=== PATIENT | male | born 1995 | race Caucasian/White ===

== ENCOUNTER 2024-06-23 11:37 | Inpatient (IN) | payer OTHER ==
[2024-06-23 11:59] VITALS: BMI 23.0
[2024-06-23] MEDS ORDERED: BENZOCAINE/MENTHOL (CHLORASEPTIC ) LOZENGE MM PRN (13:09)
[2024-06-23] MEDS ORDERED: NALOXONE HCL 0.4 MG/ML VIAL IM PRN (13:09)
[2024-06-23] MEDS ORDERED: DICYCLOMINE HCL 10 MG CAPSULE PO PRN (13:09)
[2024-06-23] MEDS ORDERED: MAGNESIUM HYDROX 2400MG/30ML ORAL SUSPENSION 30 ML CUP PO PRN (13:09)
[2024-06-23] MEDS ORDERED: MAG HYDROX/AL HYDROX/SIMETH 30 ML UNIT-DOSE CUP PO PRN (13:09)
[2024-06-23] MEDS ORDERED: POLYETHYLENE GLYCOL (HEALTHYLAX) 3350 17 GM PACKET PO PRN (13:09)
[2024-06-23] MEDS ORDERED: LOPERAMIDE HCL 2 MG CAPSULE PO PRN (13:09)
[2024-06-23] MEDS ORDERED: ACETAMINOPHEN 325 MG TABLET (FP) PO PRN (13:09)
[2024-06-23] MEDS ORDERED: ONDANSETRON *ODT* 4 MG TABLET SL PRN (13:09)
[2024-06-23] MEDS ORDERED: BENZONATATE 200 MG CAPSULE PO PRN (13:09)
[2024-06-23] MEDS ORDERED: guaiFENesin 600 MG TABLET.ER (FP) PO PRN (13:09)
[2024-06-23] MEDS ORDERED: BISMUTH SUBSALICYLATE 524 MG/30 ML PO PRN (13:09)
[2024-06-23] MEDS ORDERED: NALOXONE (NARCAN) HCL 4 MG/0.1 ML SPRAY NS PRN (13:09)
[2024-06-23] MEDS ORDERED: methaDONE HCL 10 MG TABLET PO SCH (14:00)
[2024-06-23] MEDS: methaDONE HCL 40 MG DISPERSABLE TABLET PO SCH (14:03)
[2024-06-23] MEDS: NICOTINE 14 MG/24 HOURS TOPICAL PATCH TD SCH (15:12)
[2024-06-23] MEDS: diazePAM 5 MG TABLET PO PRN (15:34)
[2024-06-23] MEDS: diazePAM 5 MG TABLET PO SCH (17:34)
[2024-06-23] MEDS ORDERED: NICOTINE POLACRILEX 4 MG GUM BUC PRN (17:35)
[2024-06-23] MEDS ORDERED: PATIENT'S OWN MEDICATION (NON-FORMULARY) (Gabapentin [Gabapentin] 600 MG Tablet) PO SCH (22:00)
[2024-06-23] MEDS: MELATONIN 5 MG TABLETS PO SCH (22:13)
[2024-06-23] MEDS: THIAMINE 100 MG TABLET PO SCH (22:14)
[2024-06-23] MEDS: PRAZOSIN HCL 1 MG CAPSULE PO SCH (22:14)
[2024-06-23] MEDS: GABAPENTIN 300 MG CAPSULE PO SCH (22:14)
[2024-06-23] MEDS: METHOCARBAMOL 500 MG TABLET PO PRN (22:14)
[2024-06-24] MEDS: PRENATAL VITAMINS W/ FOLIC ACID TABLET (FP) PO SCH (10:19)
[2024-06-24] MEDS: NICOTINE 14 MG/24 HOURS TOPICAL PATCH TD SCH (10:19)
[2024-06-24] MEDS: hydrOXYzine PAMOATE 25 MG CAPSULE (FP) PO PRN (10:19)
[2024-06-24 14:27] LABS: HEMATOCRIT 40.7 % (35.4-49); HEMOGLOBIN 13.5 GM/dL (11.7-16.9); MCH 29.1 pg (25.7-33.7); MCHC 33.1 g/dl (32.0-35.9); MEAN CELL VOLUME 88.1 fl (80-96); MEAN PLT VOLUME 8.8 fl (7.5-11.1); PLATELET COUNT 245 10^3/uL (134-434); RBC 4.62 M/mm3 (4.00-5.60); RDW 14.6 % (11.9-15.9); WHITE BLOOD COUNT 6.8 K/mm3 (4.0-10.0)
[2024-06-24 14:35] LABS: BLOOD UREA NITROGEN 13.6 mg/dL (7-18); CALCIUM 9.6 mg/dL (8.5-10.1)
[2024-06-24 14:39] LABS: BILIRUBIN,TOTAL 0.3 mg/dL (0.2-1); TOT PROT 7.3 g/dl (6.4-8.2)
[2024-06-24 14:41] LABS: CREATININE 0.9 mg/dL (0.55-1.3)
[2024-06-24] MEDS: IBUPROFEN 400 MG TABLET (FP) PO PRN (22:08)
[2024-06-25] MEDS: diazePAM 5 MG TABLET PO SCH (06:08)
[2024-06-25] MEDS: cloNIDine HCL 0.1 MG TABLET PO PRN (10:07)
[2024-06-25] MEDS: IBUPROFEN 600 MG TABLET (FP) PO PRN (13:08)
[2024-06-25] MEDS: MIRTAZAPINE 30 MG TABLET PO SCH (22:39)
[2024-06-26] MEDS: diazePAM 5 MG TABLET PO SCH (05:51)
[2024-06-27] MEDS: diazePAM 5 MG TABLET PO ONE (05:54)
[2024-06-27 09:52] VITALS: BP 131/71; PULSE 98; RESP 16; TEMP 97.8
== END 2024-06-27 10:56 | disposition home or self-care (01) | DRG 773 ==
LOC: YASAS 11:37 → Y3N 13:47 → Y6N 06-24 15:19
PROVIDERS: ADMIT Allergy & Immunology; ATTEND Surgery
PROC: HZ2ZZZZ Detoxification Services for Substance Abuse Treatment (ICD-10-PCS; principal; 2024-06-23)
DX: F11.23 Opioid dependence with withdrawal (principal); F13.20 Sedative, hypnotic or anxiolytic dependence, uncomplicated; F12.10 Cannabis abuse, uncomplicated; F17.210 Nicotine dependence, cigarettes, uncomplicated; F19.282 Other psychoactive substance dependence with psychoactive substance-induced sleep disorder; F41.8 Other specified anxiety disorders
CPT/HCPCS: 36415; 80053; 80305; 80307; 85027; 86780; 93005; 93010